=== PATIENT | female | born 1975 | race Caucasian/White ===

== ENCOUNTER → 2016-05-21 | Outpatient (CLI) | payer BC ==
[2016-05-21 13:29] VITALS: BP 101/65
== END ==
LOC: MHUC 12:35
PROVIDERS: ATTEND Physician Assistant
DX: J01.00 Acute maxillary sinusitis, unspecified (principal)
CPT/HCPCS: 99213

== ENCOUNTER 2016-08-05 17:54 | Emergency (ER) | payer BC ==
[~2016-08-05] VITALS: Ht 182.9 cm; Wt 78.0 kg
[~2016-08-05 17:54] MED LIST: METH4TAB27 PO; SULF-221 PO
--- OUTSIDE RECORDS SUMMARY | 2016-08-05 18:00 | XMS REPORT | Continuity of Care Document ---
Author Author [facility] Address Unknown Phone Unavailable Allergies Medications Problems Date Dx Coded Attending Type Code Diagnosis Diagnosed By 10/19/2014 CHANA PIERCE, KEVIN R Ot 610.0 10/19/2014 CHANA PIERCE, KEVIN R Ot 793.82 11/22/2014 CHANA PIERCE, KEVIN R Ot 793.82 11/22/2014 CHANA PIRECE, KEVIN Heller Ot V76.12 05/23/2016 MERRILL HILLMAN Ot J01.00 ACUTE MAXILLARY SINUSITIS, UNSPECIFIED Procedures Results Encounters ACCT No. Visit Date/Time Discharge Status Pt. Type Provider Facility Loc./Unit Complaint [id number] 09/18/2014 09:41:00 2014 23:59:59 CLS Outpatient CHANA PIERCE, [facility] RAD [id number] 09/13/2014 07:50:00 2014 23:59:59 CLS Outpatient CHANA PIERCE, [facility] RAD [id number] 08/05/2016 17:57:00 ACT Emergency ALLISON PIERCE, [facility] ED [id number] 05/21/2016 12:35:00 ACT Outpatient MERRILL HILLMAN [facility]
--- OUTSIDE RECORDS SUMMARY | 2016-08-05 18:01 | XMS REPORT | Continuity of Care Document ---
Author Author [facility] Address Unknown Phone Unavailable Allergies Medications Problems Date Dx Coded Attending Type Code Diagnosis Diagnosed By 10/19/2014 CHANA PIERCE, KEVIN R Ot 610.0 10/19/2014 CHANA PIERCE, KEVIN R Ot 793.82 11/22/2014 CHANA PIERCE, KEVIN R Ot 793.82 11/22/2014 CHANA PIERCE, KEVIN Heller Ot V76.12 05/23/2016 MERRILL HILLMAN Ot J01.00 ACUTE MAXILLARY SINUSITIS, UNSPECIFIED Procedures Results Encounters ACCT No. Visit Date/Time Discharge Status Pt. Type Provider Facility Loc./Unit Complaint [id number] 09/18/2014 09:41:00 2014 23:59:59 CLS Outpatient CHANA PIERCE, [facility] RAD [id number] 09/13/2014 07:50:00 2014 23:59:59 CLS Outpatient CHANA PIERCE, [facility] RAD [id number] 08/05/2016 17:57:00 ACT Emergency ALLISON PIERCE, [facility] ED [id number] 05/21/2016 12:35:00 ACT Outpatient MERRILL HILLMAN [facility]
[2016-08-05] MEDS ORDERED: TETANUS, DIPTHERIA, PERTUSSIS (ADACELL) VACCINE 0.5 ML VIAL IM ONE (18:15)
[2016-08-05] MEDS ORDERED: LIDOCAINE 1% (XYLOCAINE) 20 ML VIAL INJ ONE (18:15)
[2016-08-05] MEDS ORDERED: BACITRACIN OINTMENT 0.9 GM PACKET TOP ONE (18:40)
[2016-08-05 19:03] VITALS: BP 135/93
== END 2016-08-05 19:09 | disposition home or self-care (01) ==
LOC: ED 17:57
DX: S61.215A Laceration without foreign body of left ring finger without damage to nail, initial encounter (principal); W26.0XXA Contact with knife, initial encounter; Y93.G1 Activity, food preparation and clean up; Y92.000 Kitchen of unspecified non-institutional (private) residence as the place of occurrence of the external cause
CPT/HCPCS: 12001; 90471; 90715; 99282; 99283